=== PATIENT | female | born 1950 | race Caucasian/White ===

== ENCOUNTER 2024-03-12 07:42 | Day surgery (SDC) | payer MEDICARE, BC, SELFPAY ==
[2024-03-12] VITALS (31 sets, daily range): BP systolic 105–168; BP diastolic 63–129; PULSE 62–102; RESP 14–18; TEMP 35–36.7; O2SAT 90–99; BMI 33.1
[2024-03-12] MEDS: LACTATED RINGERS 1000 ML 1,000 ML 100 ML IV (09:40)
[2024-03-12] MEDS: CELECOXIB 200 MG CAPSULE PO (09:40)
[2024-03-12] MEDS: SODIUM CHLORIDE 0.9 % (FLUSH) 10 ML SYRINGE IVF (09:40)
[2024-03-12] MEDS: ACETAMINOPHEN 500 MG TABLET 1000 MG PO ×3 (09:40→23:52)
[2024-03-12] MEDS: MIDAZOLAM HCL 1 MG/ML inj IVP (10:38)
[2024-03-12] MEDS: fentaNYL 100 MCG/2 ML inj IVP (10:38)
--- NOTE | 2024-03-12 10:44 | SUR.PREOP ---
TIME?OUT:?1036 PT/RN/MDA?VERIFICATION?OF?SURGICAL?SITE,?PROCEDURE,?AND?CONSENT OBTAINED?PRIOR?TO?INVASIVE?PROCEDURE.
--- NOTE | 2024-03-12 11:23 | W.PM.NB ---
Nerve Block Nerve Block Time Seen by Provider: 10:40 Date Seen: 03/12/24 Type of block requested by surgeon for post-operative analgesia: femoral Side: left Time out performed: Yes Verification of patient name: Yes Verification of date of : Yes Site marking: site marked Name of person performing procedure: Jerod Continuous monitoring Was continuous monitoring of O2 sat, B/P, hospital monitor, recorded every 15 minutes?: Yes Procedure Checklist: sterile prep, needles and gloves Ultrasound guided. Images saved: Yes Medications given in 5ml increments after negative aspiration: Marcaine %: 0.25 mL: 15 Needle gauge: 20 Precedex (mcg): 25 Patient tolerated procedure well: Yes Block Charges Block Charge (with Pro Fee): Femoral Nerve Use of Ultrasound Machine for Block: Yes- US Guidance/pain block
--- NOTE | 2024-03-12 11:23 | W.PM.NB ---
Nerve Block Nerve Block Time Seen by Provider: 10:40 Date Seen: 03/12/24 Type of block requested by surgeon for post-operative analgesia: geniculars Side: left Time out performed: Yes Verification of patient name: Yes Verification of date of : Yes Site marking: site marked Name of person performing procedure: Jerod Continuous monitoring Was continuous monitoring of O2 sat, B/P, satellite project site monitor, recorded every 15 minutes?: Yes Procedure Checklist: sterile prep, needles and gloves Medications given in 5ml increments after negative aspiration: Marcaine %: 0.25 mL: 9 Needle gauge: 25 Patient tolerated procedure well: Yes Block Charges Block Charge (with Pro Fee): Genicular Nerve Block Use of Ultrasound Machine for Block: No
--- NOTE | 2024-03-12 11:24 | W.ANESCHARGE ---
Anesthesia Charges Start Date/Time Anesthesia Start Date: 03/12/24 Anesthesia Start Time: 11:29 Stop Date/Time Anesthesia Stop Date: 03/12/24 Anesthesia Stop Time: 14:09 Summary Extremes of Age - Over 70 or under 1: MDA
[2024-03-12] MEDS: CEFAZOLIN 2 GM INJ IVP (11:59)
[2024-03-12] MEDS: TRANEXAMIC ACID 100 MG/ML INJ 1000 MG IV (11:59)
[2024-03-12] MEDS: 0.9 % SODIUM CHLORIDE 1000 ml 500 ML 75 ML IV (12:53)
--- NOTE | 2024-03-12 13:09 | CRLHL7_ITS ---
For Patients: As a result of the Cures Act, medical imaging exams and procedure reports are released immediately into your electronic medical record. You may view this report before your referring provider. If you have questions, please contact your health care provider. Indication: Postop Technique: Left knee radiographs two views Comparison: Bilateral knee radiographs 01/03/2024 Findings/impression : Postsurgical changes of left knee arthroplasty are present. Hardware is intact without adjacent lucency. There is no acute fracture, dislocation or suspicious bony lesion. Air-fluid levels within the soft tissues are compatible with very recent postsurgical changes. There are no soft tissue radiopaque foreign bodies. Dictated by Rolo Mclain MD @ 03/14/2024 2:57:26 PM (Electronically Signed)
--- NOTE | 2024-03-12 13:10 | PM.ORPRC ---
Procedure Note Date of procedure: 03/12/24 Procedure: PREOPERATIVE DIAGNOSIS: Left knee osteoarthritis POSTOPERATIVE DIAGNOSIS: Left knee osteoarthritis NAME OF OPERATION: Left total knee arthroplasty SURGEON: Gianni Vu MD MATERIALS MANAGEMENT MANAGER: Neha Laurent PA-C ANESTHESIA: Spinal ESTIMATED BLOOD LOSS: 0 mL COMPLICATIONS: None SPECIMENS: None DRAINS: None PREOPERATIVE ANTIBIOTICS: Ancef 2 grams IMPLANTS: 1. J[employer]J Attune revision CRS # 5 posterior stabilized femur, with a 14 mm x 50 mm cemented stem 2. # 5 revision CRS fixed-bearing tibia, with a 14 mm x 50 mm cemented stem 3. # 5 constrained posterior stabilized, 6 mm fixed-bearing polyethylene 4. 35 patella INDICATIONS: The patient is a 73-year-old with a longstanding history of severe, unrelenting left knee pain secondary to end-stage (grade IV) left knee osteoarthritis. Despite appropriate nonoperative management, including activity modification, anti-inflammatories, [id number] pain medication, bracing, physical therapy, and injections they continue to have pain and disability. Operative intervention was offered. The risks, benefits and expected outcomes were discussed in detail. These included but were not limited to: Infection, bleeding, injury to blood vessel or nerve, venous thromboembolism. All questions were answered to their satisfaction. Use of an assistant manager pt was necessary throughout the case for patient positioning and safety, soft tissue retraction, and closure. A modifier 22 should be added to this case. Given the patient's bone loss and deformity stemmed and constrained components were used to restore stability. This added expense to complete the case. PROCEDURE: Spinal anesthesia was administered. The patient was placed supine on the operating table. The assistant manager pt made sure the patient was positioned appropriately. The lower extremity was prepped and draped in the usual sterile fashion. The limb was exsanguinated with the Charles bandage. The pneumatic tourniquet was inflated to 300 mmHg. A standard anterior incision was made with the knee in flexion. Subcutaneous dissection was sharply taken through fascial layer #1. Full-thickness medial and lateral flaps were elevated. The assistant manager pt retracted the soft tissues and protected them throughout the case. A standard subvastus approach was made. The patella was subluxed. The infrapatellar fat pad was preserved. The menisci and cruciate ligaments were sharply d?brided. Marginal osteophytes were d?brided with the rongeur. The drill was used to penetrate the femoral canal. The canal was aspirated and irrigated with pulse lavage. The intramedullary femoral guide was placed for a 5-degree valgus cut, removing 10 mm off the distal femur. The saw was used to make the cut. Whitesides line and the trans epicondylar axis were marked. The femoral sizing guide was pinned onto the distal femur. Three degrees of external rotation nicely parallels the transepicondylar axis. Pins were placed for posterior referencing. The four-in-one cutting guide was pinned onto the distal femur. The anterior, posterior, and chamfer cuts were made. The assistant manager pt protected the collateral ligaments. The revision trial was placed. The box cuts were made. The drill was used x2. The stemmed, boxed trial was placed and was an excellent fit. Attention was then turned to the proximal tibia. The extramedullary tibial guide was placed for a neutral varus/valgus cut with 5 degrees of posterior slope, removing 0 mm based off the medial tibial surface. The assistant manager pt protected the collateral ligaments and the neurovascular bundle. The saw was used to make the cut. Trial components were placed. The knee was nicely balanced in both flexion and extension. The trial components were removed. The tray was placed in appropriate rotation, parallel to our tibial cutting pins. It was pinned by the assistant manager pt and the drill x2 was used. The stemmed tibial trial was placed. The punch was used. The tray was removed. The punch was used again. Attention was then turned to the patella. [place] patellar thickness was 22 mm. The lobster claw resection guide was used with the 7.5 mm татьяна. The saw was used to make the cut. Drill holes were made by the assistant manager pt. The trial was placed and was an excellent fit. Cancellous surfaces were irrigated with pulse lavage and thoroughly dried by the assistant manager pt. We cemented the tibial component, then the femoral component. We impacted the 6 mm polyethylene onto the tibial tray. The knee was brought into full extension. We then cemented the patellar component. Excessive cement was removed. The cement was allowed to harden. The knee was taken through a range of motion and was found to be nicely balanced in both flexion and extension. The patella tracks centrally. The assistant manager pt did a three minute dilute Betadine solution soak. The assistant manager pt irrigated the wound with 3 liters of normal saline via pulse lavage. The assistant manager pt reapproximated the extensor mechanism with #1 Vicryl in an interrupted [id number] fashion. The assistant manager pt then ran the extensor mechanism with a #1 PDO Stratafix. The assistant manager pt closed the subcutaneous tissues with a 3-0 Stratafix and the skin with a running 3-0 Stratafix in a subcuticular fashion. Glue was used to seal the skin. The assistant manager pt placed a dry dressing. Sponge and needle counts were correct x2. The patient tolerated the procedure well. There were no apparent complications. They were carefully transferred to the hospital bed and taken to the postanesthesia care unit in satisfactory condition. PLAN: The patient will be mobilized with physical therapy. Aspirin will be used for DVT prophylaxis. They will be discharged to home once medically appropriate.
--- NOTE | 2024-03-12 14:11 | P.ANES_ITS ---
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
--- NOTE | 2024-03-12 15:49 | CRLHL7_ITS ---
For Patients: As a result of the Century Cures Act, medical imaging exams and procedure reports are released immediately into your electronic medical record. You may view this report before your referring provider. If you have questions, please contact your health care provider. INDICATION: visual field deficits, postop TECHNIQUE: CT of the head without contrast. Coronal and sagittal reformats. Bone and soft tissue algorithms. COMPARISON: No prior studies available for comparison at this institution. FINDINGS: No acute intracranial hemorrhage or extra-axial collection. No evidence of acute cortical infarction. No mass effect or midline shift. Mild generalized parenchymal volume loss. Mild regions of decreased attenuation within the periventricular and subcortical white matter of both cerebral hemispheres most likely reflect chronic microvascular ischemic disease and age related change in this patient. Vascular calcifications within the carotid siphons. Partially empty sella. Orbital contents are normal. No calvarial fractures. No lytic or sclerotic osseous lesions within the calvarium or skull base. Scalp and other imaged soft tissue structures are normal. Mastoid air cells are clear. IMPRESSION: 1. No acute intracranial abnormality. 2. Partially empty configuration of the sella. Please note that all CT scans at this facility use dose modulation, iterative reconstruction, and/or weight-based dosing when appropriate to reduce radiation dose to as low as reasonably achievable. Dictated by Roshan Caldwell MD @ 03/12/2024 4:23:00 PM (Electronically Signed)
--- NOTE | 2024-03-12 16:11 | P.IMCN_ITS ---
Date of Consult Patient: Odin Patient Consult date: 03/12/24 Requesting Physician: Orthopedics Primary Care Provider: Enid Brooks MD and Valerie Cotton Consult Narrative Reason for consult: confusion Narrative: Re Chaudhary is a 73 year old female who underwent an elective LTKA by Dr. Vu today for severe osteoarthritis. Postoperatively she was completely di soriented. Upon waking up from surgery, she did not know who or where she was, why she was there or the date or time. The anesthesiologist, Kirby, noted that she was oriented x3 upon anesthesia induction at 11:29 a.m.. As I was talking with Re she told me that she also feels like the tops of her visual minor are dark. It is present even if she closes 1 eye or the other. Her , José Miguel, is in the room with her. He tells me that he and his son have had some concerns about her cognition over the past year or 2, especially in terms of short-term memory, but she is also had a few episodes of disorientation that have caused them to think that maybe she needs some medication for dementia. They had not yet pursued that. Additionally she admits to drinking 1-6 beers daily. Her tells me that she has stopped drinking alcohol a day or 2 before procedures in the past and has never gone through withdrawal. He tells me that, although she is confused right now, he does not notice any other neurologic changes such as facial droop or trouble with her speech Review of Systems Status of ROS: Reports: 10 or more systems reviewed and unremarkable except as noted in History and below PFSH PFS Medical History (Updated 03/12/24 @ 16:55 by Kassy Forrest MD) Obesity, Class II, BMI 35-39.9 ?E66.812 - Obesity, class 2 (ICD-10) Hypokalemia ?E87.6 - Hypokalemia (ICD-10) Hyperlipidemia ?E78.5 - Hyperlipidemia, unspecified (ICD-10) Hypertension ?I10 - Essential (primary) hypertension (ICD-10) Surgical History (Updated 03/12/24 @ 16:53 by Kassy Forrest MD) Status post total left knee replacement ?Z96.652 - Presence of left artificial knee joint (ICD-10) Hx of colonoscopy ?Z98.890 - Other specified postprocedural states (ICD-10) Status post left foot surgery (11/09/10) ?Z98.890 - Other specified postprocedural states (ICD-10) 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 Denies tobacco use. Drinks 1-6 beers per day. What is your current living situation?: I presently have a place to live Problems where you live: no known problems In the past 12 months, utilities in danger of being shut off: no In past 12 months, lack of transportation kept you from medical appts, meetings, work, or getting things needed for daily living: no In the past 12 mos, have been you worried that your food would run out before you had money to buy more?: never true In the past 12 mos, the food you bought just didn't last and you didn't have money to buy more?: never true Highest level of school completed/degree received: Bachelor's degree Smoking Status: Never smoker Do you use any of these nicotine containing products: None Second hand tobacco smoke exposure: No How often do you have a drink containing alcohol: 4 or more times a week Alcohol type: beer How many standard drinks containing alcohol do you have on a typical day: 1 or 2 How often do you have six or more drinks on one occasion: Never AUDIT-C Alcohol total score: 4 Non-prescribed substance use: denies use Caffeine: Yes How often does anyone, including family, friends and others, physically hurt you : never How often does anyone, including family, friends and others, insult or talk down to you: never How often does anyone, including family, friends and others, threaten you with harm: never How often does anyone, including family, friends and others, scream or curse at you: never service: No Meds Home Medications and Allergies Home Medications ?Medication ?Instructions ?Recorded ?Confirmed ?Type lisinopril 10 mg tablet 10 mg PO DAILY 01/02/24 03/11/24 History simvastatin 10 mg tablet 10 mg PO HS 01/02/24 03/12/24 History cholecalciferol (vitamin D3) 25 1,000 unit PO DAILY 03/11/24 03/11/24 History mcg (1,000 unit) capsule cyanocobalamin (vitamin B-12) 1,000 mcg PO DAILY 03/11/24 03/11/24 History 1,000 mcg capsule calcium citrate 500 mg PO BID 03/12/24 03/12/24 History Allergies Allergy/AdvReac Type Severity Reaction Status Date / Time metronidazole Allergy Severe Swelling Verified 01/03/24 14:46 of Lip/Tongue/Throat codeine Allergy Intermediate Nausea Verified 01/03/24 14:46 propofol Allergy nausea/vomi Verified 03/11/24 14:14 ting tramadol Allergy nausea/vomi Verified 03/11/24 14:14 ting narcotics Allergy Severe Vomiting Uncoded 01/03/24 14:46 Exam Narrative: Exam Narrative: General: No acute distress. Awake, alert, not oriented. HEENT: Normocephalic atraumatic, pupils equally round and reactive to light and accommodation. Oropharynx clear. Mucous membranes are moist. No cervical lymphadenopathy, thyromegaly or carotid bruits. No JVD. Cardiovascular: Regular rate and rhythm. No murmurs, gallops, or rubs. Chest: No increased work of breathing. Clear to auscultation bilaterally. No crackles or wheezes. Abdomen: Bowel sounds present. Soft, nondistended, nontender. No hepatosplenomegaly or masses. Extremities: No edema, no cyanosis or clubbing. Left knee bandage is clean, dry, and intact. Skin: No jaundice, no pallor, no rashes. Neuro: Left leg block for surgery earlier today complicated the exam. NIHSS is 2. Romberg is negative. Cranial nerves 3-12 are intact. Extraocular movements are full. No nystagmus. No facial asymmetry. Tongue is midline. Peripheral vision shows a bilateral superior visual field deficit. Vision is otherwise grossly intact. Strength is 5/5 in all 3 extremities. DTRs intact and symmetric. Light touch sensation is intact in face body and extremities. Coordination is intact in upper and lower extremities. Const: Vital Signs, click to edit/add: Vital Signs - 24 hr 03/12/24 09:11 03/12/24 10:38 03/12/24 10:40 Temperature 98.1 F Pulse Rate 87 87 80 Respiratory Rate 16 16 16 Blood Pressure 152/98 H 168/94 H 153/87 H Pulse Oximetry 95 96 96 Oxygen Delivery Me thod Room Air Nasal Cannula Nasal Cannula Oxygen Flow Rate 2 2 03/12/24 10:45 03/12/24 11:00 03/12/24 11:15 Temperature Pulse Rate 80 78 75 Respiratory Rate 16 16 16 Blood Pressure 124/90 H 121/75 123/71 Pulse Oximetry 93 95 96 Oxygen Delivery Me thod Nasal Cannula Nasal Cannula Nasal Cannula Oxygen Flow Rate 2 2 2 03/12/24 14:06 03/12/24 14:11 03/12/24 14:16 Temperature 97.2 F L Pulse Rate 69 67 66 Respiratory Rate 15 15 14 Blood Pressure 105/63 115/69 123/71 Pulse Oximetry 95 96 97 Oxygen Delivery Me thod Nasal Cannula Nasal Cannula Nasal Cannula Oxygen Flow Rate 6 6 6 03/12/24 14:21 03/12/24 14:26 03/12/24 14:35 Temperature 97 F L Pulse Rate 68 68 64 Respiratory Rate 14 14 14 Blood Pressure 120/72 120/72 132/78 Pulse Oximetry 97 97 98 Oxygen Delivery Me thod Nasal Cannula Nasal Cannula Room Air Oxygen Flow Rate 3 3 03/12/24 14:40 Temperature Pulse Rate 62 Respiratory Rate 14 Blood Pressure 112/76 Pulse Oximetry 99 Oxygen Delivery Me thod Room Air Oxygen Flow Rate Labs Labs: Ordering Physician: Kassy Forrest M.D. Date of Service: 03/12/24 Procedure(s): CT head/brain wo con Accession Number(s): [id number] cc: Kassy Forrest M.D.; Enid Brooks M.D.~ For Patients: As a result of the Century Cures Act, medical imaging exams and procedure reports are released immediately into your electronic medical record. You may view this report before your referring provider. If you have questions, please contact your health care provider. INDICATION: visual field deficits, postop TECHNIQUE: CT of the head without contrast. Coronal and sagittal reformats. Bone and soft tissue algorithms. COMPARISON: No prior studies available for comparison at this institution. FINDINGS: No acute intracranial hemorrhage or extra-axial collection. No evidence of acute cortical infarction. No mass effect or midline shift. Mild generalized parenchymal volume loss. Mild regions of decreased attenuation within the periventricular and subcortical white matter of both cerebral hemispheres most likely reflect chronic microvascular ischemic disease and age related change in this patient. Vascular calcifications within the carotid siphons. Partially empty sella. Orbital contents are normal. No calvarial fractures. No lytic or sclerotic osseous lesions within the calvarium or skull base. Scalp and other imaged soft tissue structures are normal. Mastoid air cells are clear. IMPRESSION: 1. No acute intracranial abnormality. 2. Partially empty configuration of the sella. Please note that all CT scans at this facility use dose modulation, iterative reconstruction, and/or weight-based dosing when appropriate to reduce radiation dose to as low as reasonably achievable. Dictated by Roshan Caldwell MD @ 03/12/2024 4:23:00 PM (Electronically Signed) Assessment and Plan Assessment and plan (1) Visual field defect: Problem comment: - bilateral superior visual field defect - last known well @ anesthesia induction @ 11:29 a.m. - CT head neg for bleed. Not a candidate for TPA due to knee surgery within the past few hours - Monitor - If not improving by the next 1-2 days, obtain MRI Status: Acute (2) Metabolic encephalopathy: Problem comment: likely due to surgery/anesthesia Status: Suspected (3) Cognitive impairment: Problem comment: - Reported by - confused upon awaking from anesthesia - would likely benefit from cognitive testing in the future Status: Suspected (4) Status post total left knee replacement: Problem comment: - 03/12/24 Dr. Vu Status: Acute (5) Osteoarthritis of left knee: Problem comment: End-stage (grade 4) left knee osteoarthritis Status: Acute (6) Obesity, Class II, BMI 35-39.9: Status: Chronic (7) Hyperlipidemia: Problem comment: - continue statin Status: Chronic (8) Hypertension: Problem comment: - hold lisinopril tomorrow morning Status: Chronic (9) Alcohol use disorder: Problem comment: - 1-6 beers per day - monitor for withdrawal Status: Acute
--- NOTE | 2024-03-12 16:24 | PC.NURSE ---
Went with patient to CT during stroke code as RN. VSS stable prior to transport, and patient able to express needs. Patient did get nauseous during transport that was resolved by not moving, patient able to speak before and after scan. Transport of the patient was uneventful and patient was returned to her hospital bed where care was resumed by the primary RN.
[2024-03-12 16:28] LABS: Basophils Percent Auto 0.2 % (0.0-3.0); Eosinophils Percent Auto 0.2 % (0.0-7.0); Hematocrit 41.2 % (33.0-51.0); Hemoglobin* 13.2 gm/dL (12.0-16.0); Immature Granulocytes Pct Auto 0.3 %; Lymphocytes Percent Auto 7.4 % (20-44); Mean Corpuscular HGB Conc 32 gm/dL (32-36); Mean Corpuscular Hemoglobin 32 pg (26-34); Mean Corpuscular Volume 101 fL (80-100); Neutrophils Percent Auto 88.9 % (42.0-72.0); Platelet Count* 210 K/uL (140-440); RDW Coefficient of Variation % 13.5 % (11.5-15.5); White Blood Count* 11.13 K/uL (4.50-11.00)
[2024-03-12 16:33] LABS: Slide Review Reflex No
[2024-03-12 16:47] LABS: Chloride* 102 mmol/L (96-114); Potassium* 4.1 mmol/L (3.6-5.1); Sodium* 135 mmol/L (135-149)
[2024-03-12 16:49] LABS: INR 0.94 (0.91-1.10); Partial Thromboplastin Time* 31 Seconds (23-33); Prothrombin Time 13.1 Seconds
[2024-03-12 16:50] LABS: Anion Gap 8 mEq/L (7-15); Blood Urea Nitrogen* 12 mg/dL (7-30); Carbon Dioxide* 25 mmol/L (20-32); Creatinine* 0.6 mg/dL (0.5-1.5); Est. Creatinine Clearance* 45.09; Estimated Glomerular Filt Rate 95 ml/min
[2024-03-12 16:51] LABS: Calcium* 9.2 mg/dL (8.4-10.6); Glucose* 124 mg/dL (60-115)
[2024-03-12] MEDS: CEFAZOLIN 2 GM in 0.9 % SODIUM CHLORIDE Mini-bag 100 ML IVPB (17:36)
[2024-03-12] MEDS: ONDANSETRON 2 MG/ML inj 4 MG IVP (18:57)
[2024-03-12] MEDS: HYDROmorphone 2 MG TABLET PO (18:57)
--- NOTE | 2024-03-12 19:38 | PC.NURSE ---
End of Shift/ event: The patient arrived to the floor around 1445 and was noted to be confused which was reported to be her baseline coming out of anesthesia per her . @1545 I was alerted by Dr Forrest that a Stroke code needed to be called on the patient due to visual changes (the patient reported black orb type shadows over both eyes to her ). Last known well is sometime between admission to 1545. Stroke code protocol was followed and completed. CT was noted to be clear. The patient was placed on tele. Up Ax1 w/ RW to BR. L knee dressing is CDI. Reports excessive pain.... is noted to have adverse reactions to narcotics. Scheduled and PRN diluadid was given with zofran. The patient is hoping this helps with her pain. TOlerating a regular diet with no issues. Noted to repeat herself/questions after education on multiple topics. is at the bedside. Call light within reach and the alarms are on.
[2024-03-12] MEDS: ASPIRIN 81 MG TABLET EC PO (20:38)
[2024-03-12] MEDS: SENNOSIDES 1 TAB TABLET 2 TAB PO (20:39)
[2024-03-12] MEDS: MELATONIN 3 MG TABLET PO (23:52)
[2024-03-13] MEDS: CEFAZOLIN 2 GM in 0.9 % SODIUM CHLORIDE Mini-bag 100 ML IVPB (01:37)
[2024-03-13] MEDS: ONDANSETRON 2 MG/ML inj 4 MG IVP (01:38)
[2024-03-13] MEDS: HYDROmorphone 2 MG TABLET PO (01:38)
[2024-03-13 03:00] VITALS: BP 153/84; PULSE 84; RESP 18; TEMP 36.2; O2SAT 97
[2024-03-13] MEDS: ACETAMINOPHEN 500 MG TABLET 1000 MG PO (05:56)
[2024-03-13 06:27] LABS: Basophils Absolute Auto 0.01 K/uL (0.00-0.30); Basophils Percent Auto 0.1 % (0.0-3.0); Hematocrit 35.4 % (33.0-51.0); Hemoglobin* 11.4 gm/dL (12.0-16.0); Immature Granulocytes Abs Auto 0.02 K/uL (0.00-0.30); Immature Granulocytes Pct Auto 0.2 %; Lymphocytes Percent Auto 9.8 % (20-44); Mean Corpuscular HGB Conc 32 gm/dL (32-36); Mean Corpuscular Hemoglobin 32 pg (26-34); Mean Corpuscular Volume 100 fL (80-100); Monocytes Percent Auto 17.2 % (0.0-11.0); Neutrophils Percent Auto 72.7 % (42.0-72.0); Platelet Count* 187 K/uL (140-440); RDW Coefficient of Variation % 13.5 % (11.5-15.5); Red Blood Count 3.54 m/uL (4.00-5.20); White Blood Count* 9.47 K/uL (4.50-11.00)
[2024-03-13 06:29] LABS: Slide Review Reflex No
[2024-03-13 06:36] LABS: Sodium* 134 mmol/L (135-149)
[2024-03-13 06:37] LABS: Potassium* 3.5 mmol/L (3.6-5.1)
[2024-03-13 06:39] LABS: Creatinine* 0.6 mg/dL (0.5-1.5); Est. Creatinine Clearance* 45.09; Estimated Glomerular Filt Rate 95 ml/min
[2024-03-13 06:40] LABS: Blood Urea Nitrogen* 14 mg/dL (7-30)
[2024-03-13 06:51] LABS: INR 0.99 (0.91-1.10); Prothrombin Time 13.7 Seconds
--- NOTE | 2024-03-13 07:00 | PC.NURSE ---
End of shift note [id number]: Pt noted to be alert & oriented x 4 though also noted to have intermittent confusion. For example, pt was frequently using call light at into overnight and when staff would respond she would say, ?Sorry, I?m not sure why I keep hitting that button?. PRN Melatonin given to promote restful night sleep.?Pt also asking to see MD about ?canceling some of my meds? referring to ?doctor I just saw? though pt had just been seen by this entry writer, her RN. Pt also needed further education regarding pain scale. Pt transferring/ambulating with SBA using rolling walker and gait belt. VSS and pt has been afebrile. Pain to L knee/leg treated with PRN Dilaudid, rest and repositioning. Pt refused ice and continuous pulse ox monitoring for most of the shift despite education provided. Dressing to anterior L knee noted to be C/D/I and CMS to LLE intact. Pt continent of bladder using toilet. IVs to L AC and R hand in place and SL. Bed alarm on due to pt high fall risk and call light within reach though patient did not use it when trying to get up to go to bathroom. Pt on tele with sinus arrhythmia noted.
[2024-03-13 07:30] VITALS: PULSE 74; RESP 20; O2SAT 96
[2024-03-13 09:00] VITALS: BP 147/83; PULSE 77; RESP 20; TEMP 36.2; O2SAT 96
[2024-03-13] MEDS: SENNOSIDES 1 TAB TABLET 2 TAB PO (09:29)
[2024-03-13] MEDS: ASPIRIN 81 MG TABLET EC PO (09:29)
--- NOTE | 2024-03-13 10:31 | P.IMPN_ITS ---
Progress Note: A&P Assessment and plan (1) Status post total left knee replacement: Problem details: - 03/12/24 Dr. Vu Status: Acute (2) Visual field defect: Problem details: - bilateral superior visual field defect - last known well @ anesthesia induction @ 11:29 a.m. - CT head neg for bleed. Not a candidate for TPA due to knee surgery within the past few hours - 03/[address] Cordero who thought this was likely metabolic encephalopathy as it would be a very unusual bilateral deficit with stroke. - 03/13 resolved. Status: Resolved (3) Metabolic encephalopathy: Problem details: likely due to surgery/anesthesia Status: Resolved (4) Cognitive impairment: Problem details: - Reported by - confused upon awaking from anesthesia - would benefit from outpatient cognitive testing, I've recommended no driving until then Status: Suspected (5) Alcohol use disorder: Problem details: - 1-6 beers per day - no evidence of withdrawal Status: Acute (6) Hypertension: Problem details: - hold lisinopril today, restart tomorrow morning Status: Chronic (7) Osteoarthritis of left knee: Problem details: End-stage (grade 4) left knee osteoarthritis Status: Chronic (8) Hyperlipidemia: Problem details: - continue statin Status: Chronic (9) Obesity, Class II, BMI 35-39.9: Status: Chronic Time Spent With Patient Total time spent: Today I spent 25 minutes rounding on the patient. Greater than 50% included discussing care with the patient and her , ortho PA, team, reviewing data, updating and managing the care plan. Subjective Time Seen by Provider: 07:55 Date Seen: 03/13/24 Interval history: Re tells me she feels better and the vision changes yesterday are gone now. Her spoke with me privately outside the room and noted that she was much closer to her baseline today. She is still slightly more confused than usual. I offered to obtain an MRI. He would like to see how she does upon returning home and see her PCP to obtain MRI if the mild confusion persists. He told me that she gets confused by roundabouts and pedestrians while driving. I recommended that she not drive until outpatient cognitive testing has been done. He agreed with this. Exam Narrative: Exam Narrative: General: No acute distress. Awake, alert, oriented to self, place, situation, but still having some confusion about medical details. Cardiovascular: Regular rate and rhythm. No murmurs, gallops, or rubs. Chest: No increased work of breathing. Clear to auscultation bilaterally. No crackles or wheezes. Abdomen: Bowel sounds present. Soft, nondistended, nontender. No hepatosplenomegaly or masses. Extremities: No edema, no cyanosis or clubbing. Left knee bandage is clean, dry, and intact. Ecchymosis of left knee noted. Neuro: Cranial nerves 2-12 are intact. Extraocular movements are full. No nystagmus. No facial asymmetry. Tongue is midline. Peripheral vision and vision is otherwise grossly intact. Strength is 5/5 in all 4 extremities with the exception of L knee. Const: Vital Signs, click to edit/add: Vital Signs - 24 hr 03/12/24 10:38 03/12/24 10:40 03/12/24 10:45 Temperature Pulse Rate 87 80 80 Pulse Rate [Left P ulse Oximeter] Respiratory Rate 16 16 16 Blood Pressure 168/94 H 153/87 H 124/90 H Blood Pressure [Ri ght Arm] Pulse Oximetry 96 96 93 Oxygen Delivery Me thod Nasal Cannula Nasal Cannula Nasal Cannula Oxygen Flow Rate 2 2 2 03/12/24 11:00 03/12/24 11:15 03/12/24 14:06 Temperature 97.2 F L Pulse Rate 78 75 69 Pulse Rate [Left P ulse Oximeter] Respiratory Rate 16 16 15 Blood Pressure 121/75 123/71 105/63 Blood Pressure [Ri ght Arm] Pulse Oximetry 95 96 95 Oxygen Delivery Me thod Nasal Cannula Nasal Cannula Nasal Cannula Oxygen Flow Rate 2 2 6 03/12/24 14:11 03/12/24 14:16 03/12/24 14:21 Temperature Pulse Rate 67 66 68 Pulse Rate [Left P ulse Oximeter] Respiratory Rate 15 14 14 Blood Pressure 115/69 123/71 120/72 Blood Pressure [Ri ght Arm] Pulse Oximetry 96 97 97 Oxygen Delivery Me thod Nasal Cannula Nasal Cannula Nasal Cannula Oxygen Flow Rate 6 6 3 03/12/24 14:26 03/12/24 14:35 03/12/24 14:40 Temperature 97 F L Pulse Rate 68 64 62 Pulse Rate [Left P ulse Oximeter] Respiratory Rate 14 14 14 Blood Pressure 120/72 132/78 112/76 Blood Pressure [Ri ght Arm] Pulse Oximetry 97 98 99 Oxygen Delivery Me thod Nasal Cannula Room Air Room Air Oxygen Flow Rate 3 03/12/24 15:00 03/12/24 15:15 03/12/24 15:30 Temperature 95.0 F L 95.0 F L 95.6 F L Pulse Rate 65 63 63 Pulse Rate [Left P ulse Oximeter] Respiratory Rate 14 16 16 Blood Pressure 126/92 H 139/129 H 142/83 H Blood Pressure [Ri ght Arm] Pulse Oximetry 99 99 98 Oxygen Delivery Me thod Oxygen Flow Rate 03/12/24 15:45 03/12/24 15:49 03/12/24 15:49 Temperature 96.0 F L Pulse Rate 64 90 Pulse Rate [Left P ulse Oximeter] Respiratory Rate 16 Blood Pressure 136/95 H Blood Pressure [Ri ght Arm] Pulse Oximetry 90 97 Oxygen Delivery Me thod Room Air Oxygen Flow Rate 03/12/24 16:00 03/12/24 16:15 03/12/24 16:30 Temperature 96.5 F L 96.0 F L 96.5 F L Pulse Rate 68 69 74 Pulse Rate [Left P ulse Oximeter] Respiratory Rate 16 16 16 Blood Pressure 160/92 H 144/86 H 136/80 Blood Pressure [Ri ght Arm] Pulse Oximetry 95 98 97 Oxygen Delivery Me thod Oxygen Flow Rate 03/12/24 16:45 03/12/24 16:51 03/12/24 17:00 Temperature 96.5 F L 95.6 F L 96.5 F L Pulse Rate 72 65 84 Pulse Rate [Left P ulse Oximeter] Respiratory Rate 18 18 16 Blood Pressure 150/94 H 122/76 153/92 H Blood Pressure [Ri ght Arm] Pulse Oximetry 96 96 97 Oxygen Delivery Me thod Room Air Oxygen Flow Rate 03/12/24 17:34 03/12/24 17:45 03/12/24 19:00 Temperature 97.0 F L 97.1 F L Pulse Rate 86 94 Pulse Rate [Left P ulse Oximeter] Respiratory Rate 18 18 Blood Pressure 143/97 H 167/82 H Blood Pressure [Ri ght Arm] Pulse Oximetry 93 97 94 Oxygen Delivery Me thod Room Air Room Air Oxygen Flow Rate 03/12/24 20:00 03/12/24 22:45 03/12/24 23:00 Temperature 97.1 F L Pulse Rate 102 H 88 Pulse Rate [Left P ulse Oximeter] 89 Respiratory Rate 18 18 Blood Pressure 110/98 H Blood Pressure [Ri ght Arm] Pulse Oximetry 93 Oxygen Delivery Me thod Room Air Oxygen Flow Rate 03/12/24 23:54 03/12/24 23:54 03/13/24 03:00 Temperature 96.7 F L 97.1 F L Pulse Rate Pulse Rate [Left P ulse Oximeter] 84 Respiratory Rate 18 18 18 Blood Pressure Blood Pressure [Ri ght Arm] 143/84 H 153/84 H Pulse Oximetry 96 96 97 Oxygen Delivery Me thod Room Air Room Air Room Air Oxygen Flow Rate 03/13/24 07:30 03/13/24 07:30 03/13/24 07:30 Temperature Pulse Rate 74 Pulse Rate [Left P ulse Oximeter] 74 Respiratory Rate 20 20 Blood Pressure Blood Pressure [Ri ght Arm] Pulse Oximetry 96 Oxygen Delivery Me thod Room Air Oxygen Flow Rate Labs Labs: Laboratory Results - last 24 hr 03/12/24 03/13/24 16:20 05:53 WBC 11.13 H 9.47 RBC 4.10 3.54 L Hgb 13.2 11.4 L Hct 41.2 35.4 MCV 101 H 100 MCH 32 32 MCHC 32 32 RDW Coeff of Maurice 13.5 13.5 Plt Count 210 187 Neut % (Auto) 88.9 H 72.7 H Lymph % (Auto) 7.4 L 9.8 L [place] % (Auto) 3.0 17.2 H Eos % (Auto) 0.2 0.0 Baso % (Auto) 0.2 0.1 Neut # (Auto) 9.90 H 6.90 Lymph # (Auto) 0.80 L 0.90 [place] # (Auto) 0.30 1.60 H Eos # (Auto) 0.00 0.00 Baso # (Auto) 0.00 0.01 Abs Immat Gran (auto) 0.00 0.02 Imm/Tot Granulo (auto) 0.3 0.2 INR 0.94 0.99 APTT 31 Sodium 135 134 L Potassium 4.1 3.5 L Chloride 102 Carbon Dioxide 25 Anion Gap 8 BUN 12 14 Creatinine 0.6 0.6 Estimated Creat Clear 45.09 45.09 Estimated GFR 95 95 Glucose 124 H Calcium 9.2
--- NOTE | 2024-03-13 11:04 | PC.SOCIAL ---
Spoke with pt.'s spouse José Miguel at [phone] to discuss discharge plans. Pt. is back to baseline regarding her cognition according to José Miguel. José Miguel plans to stay with pt. 19/12 and assist her at home as needed. Pt. will have everything she needs one one level. José Miguel is aware he can contact social media executive if he needs additional resources for pt. at home.
--- NOTE | 2024-03-13 11:19 | PM.ORPN ---
Subjective Subjective Time Seen by Provider: 07:44 Date Seen: 03/13/24 Principal diagnosis: Status post left knee replacement Interval history: Re is accompanied by her José Miguel this morning. Her visual field has improved from postop. She just woke up in states she has a bit of confusion. Ortho Exam Narrative Exam Narrative: Alert . Patient is in no acute distress. Converses without labored breathing. Hearing is grossly intact. Ambulates with a walker. Examination of the left knee shows the dressing is intact. No erythema or warmth or sign of infection. Mild hematoma. Mild soft tissue edema. Bruising about the left leg is present. Bilateral calves are soft and nontender. She is able to straight leg raise. CMS intact left lower extremity. Const Vital Signs, click to edit/add: Vital Signs - 24 hr 03/12/24 14:06 03/12/24 14:11 03/12/24 14:16 Temperature 97.2 F L Pulse Rate 69 67 66 Pulse Rate [Left Pulse Oximeter] Respiratory Rate 15 15 14 Blood Pressure 105/63 115/69 123/71 Blood Pressure [Right Arm] Pulse Oximetry 95 96 97 Oxygen Delivery Method Nasal Cannula Nasal Cannula Nasal Cannula Oxygen Flow Rate 6 6 6 03/12/24 14:21 03/12/24 14:26 03/12/24 14:35 Temperature 97 F L Pulse Rate 68 68 64 Pulse Rate [Left Pulse Oximeter] Respiratory Rate 14 14 14 Blood Pressure 120/72 120/72 132/78 Blood Pressure [Right Arm] Pulse Oximetry 97 97 98 Oxygen Delivery Method Nasal Cannula Nasal Cannula Room Air Oxygen Flow Rate 3 3 03/12/24 14:40 03/12/24 15:00 03/12/24 15:15 Temperature 95.0 F L 95.0 F L Pulse Rate 62 65 63 Pulse Rate [Left Pulse Oximeter] Respiratory Rate 14 14 16 Blood Pressure 112/76 126/92 H 139/129 H Blood Pressure [Right Arm] Pulse Oximetry 99 99 99 Oxygen Delivery Method Room Air Oxygen Flow Rate 03/12/24 15:30 03/12/24 15:45 03/12/24 15:49 Temperature 95.6 F L 96.0 F L Pulse Rate 63 64 Pulse Rate [Left Pulse Oximeter] Respiratory Rate 16 16 Blood Pressure 142/83 H 136/95 H Blood Pressure [Right Arm] Pulse Oximetry 98 90 97 Oxygen Delivery Method Room Air Oxygen Flow Rate 03/12/24 15:49 03/12/24 16:00 03/12/24 16:15 Temperature 96.5 F L 96.0 F L Pulse Rate 90 68 69 Pulse Rate [Left Pulse Oximeter] Respiratory Rate 16 16 Blood Pressure 160/92 H 144/86 H Blood Pressure [Right Arm] Pulse Oximetry 95 98 Oxygen Delivery Method Oxygen Flow Rate 03/12/24 16:30 03/12/24 16:45 03/12/24 16:51 Temperature 96.5 F L 96.5 F L 95.6 F L Pulse Rate 74 72 65 Pulse Rate [Left Pulse Oximeter] Respiratory Rate 16 18 18 Blood Pressure 136/80 150/94 H 122/76 Blood Pressure [Right Arm] Pulse Oximetry 97 96 96 Oxygen Delivery Method Room Air Oxygen Flow Rate 03/12/24 17:00 03/12/24 17:34 03/12/24 17:45 Temperature 96.5 F L 97.0 F L Pulse Rate 84 86 Pulse Rate [Left Pulse Oximeter] Respiratory Rate 16 18 Blood Pressure 153/92 H 143/97 H Blood Pressure [Right Arm] Pulse Oximetry 97 93 97 Oxygen Delivery Method Room Air Oxygen Flow Rate 03/12/24 19:00 03/12/24 20:00 03/12/24 22:45 Temperature 97.1 F L 97.1 F L Pulse Rate 94 102 H 88 Pulse Rate [Left Pulse Oximeter] Respiratory Rate 18 18 Blood Pressure 167/82 H 110/98 H Blood Pressure [Right Arm] Pulse Oximetry 94 93 Oxygen Delivery Method Room Air Room Air Oxygen Flow Rate 03/12/24 23:00 03/12/24 23:54 03/12/24 23:54 Temperature 96.7 F L Pulse Rate Pulse Rate [Left Pulse Oximeter] 89 Respiratory Rate 18 18 18 Blood Pressure Blood Pressure [Right Arm] 143/84 H Pulse Oximetry 96 96 Oxygen Delivery Method Room Air Room Air Oxygen Flow Rate 03/13/24 03:00 03/13/24 07:30 03/13/24 07:30 Temperature 97.1 F L Pulse Rate 74 Pulse Rate [Left Pulse Oximeter] 84 74 Respiratory Rate 18 20 Blood Pressure Blood Pressure [Right Arm] 153/84 H Pulse Oximetry 97 Oxygen Delivery Method Room Air Oxygen Flow Rate 03/13/24 07:30 03/13/24 09:00 Temperature 97.2 F L Pulse Rate Pulse Rate [Left Pulse Oximeter] 77 Respiratory Rate 20 20 Blood Pressure Blood Pressure [Right Arm] 147/83 H Pulse Oximetry 96 96 Oxygen Delivery Method Room Air Room Air Oxygen Flow Rate Assessment and Plan Assessment and plan (1) Status post total left knee replacement: Problem details: - 03/12/24 Dr. Vu Status: Acute Assessment and Plan: Plan for discharge is today to home if they meet discharge criteria. DVT prophylaxis includes aspirin 81 mg twice daily x1 month, Compression stockings as needed for swelling. Frequent ambulation, every hour throughout the day. Remove dressing in 1 week. Observe wound and phone Orthopedics with any questions or concerns Return to clinic in 1 week for a wound check Return to clinic in 6 weeks with surgeon Minimize narcotic use. Wean off and discontinue soon as possible. Activities as tolerated. No strenuous activity. Outpatient physical therapy as scheduled. Ice and elevate the operative extremity. No restriction on ice. Dr. Forrest messaged me and states she will be discharging to home with her José Miguel. She has cognitive impairment
--- NOTE | 2024-03-13 12:26 | PC.NURSE ---
Pt instructions about follow up needs and all DC meds, therapies, instructions given verbally and in writing to pt and spouse. All questions answered. IV x2 DC'd, cath tip intact. DC to home @[id number] with spouse and adult son.
== END 2024-03-13 11:25 | disposition home or self-care (01) ==
LOC: OR 07:44 → MEDSURG 08:47
PROVIDERS: Family Medicine; PCP Family Medicine; Visit Provider Orthopaedic Surgery
PROC: (CPT 27447; principal; 2024-03-12 11:00)
DX: M17.12 Unilateral primary osteoarthritis, left knee (principal); G89.18 Other acute postprocedural pain; G93.41 Metabolic encephalopathy; E66.812 Obesity, class 2; H53.453 Other localized visual field defect, bilateral; I10 Essential (primary) hypertension; F10.99 Alcohol use, unspecified with unspecified alcohol-induced disorder; Z68.39 Body mass index [BMI] 39.0-39.9, adult; G31.84 Mild cognitive impairment of uncertain or unknown etiology; E78.5 Hyperlipidemia, unspecified
CPT/HCPCS: 27447; 01402; 36415; 64447; 64454; 70450; 73560; 76942; 80048; 82565; 82962; 84132; 84295; 84520; 85025; 85610; 85730; 93005; 97116; 97161; 97165; 97530; 97535; 99100; A9270; C1776; J0690; J1100; J2250; J2405; J2704; J3010; J3490; J7030; J7120

== ENCOUNTER 2024-04-18 13:45 | Outpatient (RCR) | payer MEDICARE, BC, SELFPAY ==
--- NOTE | 2024-03-08 15:16 | PT.OPEX ---
PT [facility] Outpatient Eval PT [facility] Outpatient Eval Start: 03/08/24 15:00 Freq: Status: Active Protocol: Document 03/08/24 15:05 LARISA (Rec: 03/08/24 15:14 LARISA [id number]) E-signed By Nano Torres DPT Physical Therapy Outpatient Evaluation Insurance Information Recert Due Date 06/06/24 Insurance Name Medicare B,[employer] Medical Diagnosis L knee OA L TKA 03/12/24 Treating Diagnosis L TKA 03/12/24, L knee pain, impaired L knee ROM, impaired L knee/LE mobility/strength, limping/antalgic gait Subjective Subjective Patient reports chronic L knee pain leading up to L TKA scheduled for 03/12/24. Patient had R TKA several years ago. She has FWW, tub bench, commode chair for over toilet from last TKA surgery. Also has gel packs she can use for icing after surgery. Spouse is able to assist as needed at home. 2 stairs with railing to enter home from the garage. Once inside, patient can stay on main level . Patient states she will need R ankle replacement surgery at some point as well but needing to get L TKA surgery done first. She is not needing as AD, denies any recent falls. Pain up to 8/10 . Date of Surgery (If applicable) 03/12/24 Current Work Status Retired Precautions Treatment Precautions/Contraindications hx R TKA, chronic R ankle pain issues (states she needs R ankle replaced at some point as well) Assessment Assessment/Impression Patient is a 73 year old female with L TKA 03/12/24, L knee pain, impaired L knee ROM , impaired L knee/LE mobility/ strength, limping/antalgic gait. L knee pain up to 8/10 at times. She reports limited mobility/standing/walking secondary to L knee pain. Also reports some chronic R ankle pain, states she needs a R ankle replacement at some point as well but doing L TKA first. Patient seen in PT today for pre-op session to provide education/information on upcoming TKA surgery, safety information/HO, equipment instruction including use of FWW, and instruction in TKA exercises. Handouts issued for exercises , patient to perform them leading up to surgery. Reviewed PT/OT plan during hospital stay and patient is scheduled for OP PT post op. Patient has 2 stairs with railing to enter from the garage. Once inside, patient can stay on the main level. Spouse able to assist as needed. Patient has FWW, commode for over toilet, tub bench, ice gel packs from her prior R TKA to use after surgery. Patient would benefit from skilled PT for pain/sx management, improved knee ROM, improved knee/LE mobility/strength, improved gait, balance/proprioception training, and establishment of HEP. Plan of Care Rehabilitation Potential Good Physical Therapy Goals 1. Patient will be educated in TKA pre/post-op safety, mobility, and exercises with HOs provided within one visit with patient returning to PT for post op treatment after L TKA surgery on 03/12/24. PT goals will be updated to TKA rehab goals when patient returns post op. Coordination/Communication With Referral Source Treatment Plan/Direct Interventions Gait Training,Manual Therapy, Therapeutic Exercises Frequency/Duration one pre-op session, then 2x/ week post op Patient Will Be Discharged From Therapy Completion of LTG(s),Skills Plateau,Independent w/HEP, Independently Progressing Evaluation Billing Untimed Code Treatment Minutes 43 Complexity Moderate Certification Information Initial Certification Date 03/08/24 Ending Certification Date 06/06/24 Provider Signature Required Yes Provider Signature Shows Agreement With POC & Medical Necessity Physician NPI Number Write NPI# Here Physician Comment/Change : Physician Signature & Date Requested Please Sign/Date Here
== END 2024-08-16 23:59 | disposition home or self-care (01) ==
PROVIDERS: PCP Family Medicine; Visit Provider Orthopaedic Surgery
DX: Z51.89 Encounter for other specified aftercare (principal); M17.12 Unilateral primary osteoarthritis, left knee; Z96.652 Presence of left artificial knee joint; M25.562 Pain in left knee; M25.462 Effusion, left knee; Z74.09 Other reduced mobility; R26.89 Other abnormalities of gait and mobility; G47.9 Sleep disorder, unspecified
CPT/HCPCS: 97110; 97140; 97162; 97164

== ENCOUNTER 2024-09-26 15:42 | Outpatient (CLI) | payer MEDICARE, BC, SELFPAY ==
--- NOTE | 2024-09-26 16:00 | CRLHL7_ITS ---
For Patients: As a result of the Cures Act, medical imaging exams and procedure reports are released immediately into your electronic medical record. You may view this report before your referring provider. If you have questions, please contact your health care provider. INDICATION: Cervicalgia. Hit head with water cooler. TECHNIQUE: CT cervical spine without contrast. COMPARISON: Cervical radiographs 09/26/2024. FINDINGS: Bone demineralization. Grade 1 anterolisthesis of C4 on C5 appears unchanged. There is also mild grade 1 anterolisthesis of C3 on C4 and C5 on C6 [id number] multilevel degenerative changes with disc space narrowing, disc osteophyte complex formation, uncovertebral hypertrophy and facet arthropathy. No acute cervical spine fracture. No other osseous abnormality. Carotid calcifications. Paraspinal soft tissues elsewhere as imaged and visualized lung apices are unremarkable. IMPRESSION: No acute cervical spine fracture. Dictated by Fili Nash MD @ 09/26/2024 4:27:39 PM Please note that all CT scans at this facility use dose modulation, iterative reconstruction, and/or weight-based dosing when appropriate to reduce radiation dose to as low as reasonably achievable. Dictated by: Fili Nash MD @ 09/26/2024 16:28:02 (Electronically Signed)
== END 2024-09-26 15:43 | disposition home or self-care (01) ==
PROVIDERS: PCP Family Medicine; Visit Provider Physician Assistant
DX: M54.2 Cervicalgia (principal)
CPT/HCPCS: 72125

== ENCOUNTER 2025-01-07 14:19 | Outpatient (RCR) | payer MEDICARE, BC, SELFPAY | END 2025-05-07 23:59 | disposition home or self-care (01) | PROVIDERS: PCP Family Medicine; Visit Provider Orthopaedic Surgery | DX: M25.571 Pain in right ankle and joints of right foot (principal); Z51.89 Encounter for other specified aftercare | CPT/HCPCS: 97110; 97162 ==